=== PATIENT | male | born 1995 | race Caucasian/White ===

== ENCOUNTER 2016-10-22 16:51 | Emergency (ER) | payer OTHER ==
[~2016-10-22] VITALS: Ht 154.9 cm; Wt 51.5 kg
[~2016-10-22 16:51] MED LIST: NOHOMEMEDS
[2016-10-22] MEDS ORDERED: KEFLEX500 MG PO (19:21)
[2016-10-22 19:44] VITALS: BP 122/78
== END 2016-10-22 19:45 | disposition home or self-care (01) ==
LOC: RME 16:51 → EME 16:51 → RME 19:45
DX: S92.532A Displaced fracture of distal phalanx of left lesser toe(s), initial encounter for closed fracture (principal); S97.102A Crushing injury of unspecified left toe(s), initial encounter; X79.XXXA Intentional self-harm by blunt object, initial encounter; F17.200 Nicotine dependence, unspecified, uncomplicated
CPT/HCPCS: 73630; 99281; 99284